=== PATIENT | male | born 1995 | race Caucasian/White ===

== ENCOUNTER 2020-04-18 13:50 | Emergency (ER) | payer OTHER, SELFPAY ==
[2020-04-18] VITALS (17 sets, daily range): BP systolic 98–125; BP diastolic 52–80; PULSE 72–97; RESP 16–24; TEMP 36.8; O2SAT 95–100; BMI 25.0
--- NOTE | 2020-04-18 13:53 | DI.US.S_ITS ---
PROCEDURE: US ABDOMEN COMPLETE INDICATIONS: UPPER ABDOMEN PAIN, NAUSEA, VOMITING, AND DIARRHEA TECHNIQUE: Real-time scanning was performed of the abdominal and retroperitoneal organs, with image documentation. COMPARISON: None. FINDINGS: Liver: Liver is normal in size and homogeneous in echotexture. Gallbladder: The gallbladder appears normal without gallstones or gallbladder wall thickening. There is no pericholecystic fluid. Sonographic Rodarte sign is negative. Biliary ducts: Intrahepatic bile ducts are non-dilated. Extrahepatic bile duct caliber measures 4 mm. Normal is 6-7 mm or less in diameter, or 10 mm or less post-cholecystectomy. Pancreas: Visualized portions of the pancreas are sonographically normal. Spleen: Spleen is normal in size and homogeneous in echotexture. Kidneys: Kidneys are normal in size and echotexture. Right kidney measures 10.5 cm long; left kidney measures 9.6 cm long. No hydronephrosis or nephrolithiasis. No solid masses. Aorta: Visualized aorta is normal in caliber at less than 3 cm. Iliacs: Proximal common iliac arteries are normal in caliber at less than 2.5 cm. IVC: Intrahepatic inferior vena cava is patent. Miscellaneous: No free abdominal fluid. IMPRESSION: No acute abnormality is identified sonographically in the abdomen. Dictated by: John Metzger M.D. on 04/18/2020 at 15:05 Approved by: John Metzger M.D. on 04/18/2020 at 15:08
[2020-04-18] MEDS: HALOPERIDOL 5 MG/ML VIAL 2 MG IV (14:02)
[2020-04-18] MEDS: PANTOPRAZOLE 40 MG VIAL IV (14:02)
[2020-04-18] MEDS: SODIUM CHLORIDE 0.9% 1,000 ML 999 ML IV (14:03)
[2020-04-18 14:24] LABS: Add Manual Diff / Slide Review NO; Basophils Absolute Auto 0 /uL (0-100); Basophils Percent Auto 0.3 % (0-2); Eosinophils Absolute Auto 0 /uL (0-450); Hematocrit 42.3 % (41-53); Hemoglobin 14.5 g/dL (13.5-17.5); Lymphocytes Absolute Auto 600 /uL (1100-4500); Lymphocytes Percent Auto 3.5 % (25-40); Mean Corpuscular HGB Conc 34.4 % (30-36); Mean Corpuscular Hemoglobin 32.2 PG (26-34); Mean Corpuscular Volume 93.6 fL (80-100); Monocytes Absolute Auto 400 /uL (0-900); Monocytes Percent Auto 2.5 % (3-14); Neutrophils Absolute Auto 15600 /uL (1500-7000); Neutrophils Percent Auto 93.7 % (50-75); Platelet Count 379 X10^3/uL (150-400); Red Blood Cell Count 4.52 X10^6/uL (4.5-5.9); Red Cell Distribution Width 12.6 % (11.6-14.8); White Blood Cell Count 16.7 X10^3/uL (4.5-11.0)
[2020-04-18 14:33] LABS: Alanine Aminotransferase 16 IU/L (<50); Albumin Globulin Ratio 1.7 (1.0-2.8); Alkaline Phosphatase 65 U/L (38-126); Aspartate Aminotransferase 24 IU/L (17-59); BUN Creatinine Ratio 17.2 (6-22); Bilirubin Total 0.5 mg/dL (0.2-1.3); Blood Urea Nitrogen 16 mg/dL (9-20); Calcium 9.8 mg/dL (8.4-10.2); Carbon Dioxide 21 mmol/L (22-32); Chloride 104 mmol/L (98-107); Estimated Glomerular Filt Rate > 60.0 mL/min (>60); Glucose 134 mg/dL (70-100); HEMOLYSIS < 15 (0-50); Lipase 89 U/L (23-300); Potassium 3.8 mmol/L (3.4-5.1); Sodium 137 mmol/L (137-145)
[2020-04-18 14:34] LABS: Magnesium 1.6 mg/dL (1.6-2.3)
[2020-04-18 14:55] LABS: Lactate (Lactic Acid) 1.7 mmol/L (0.7-2.1)
[2020-04-18 14:58] LABS: COVID19 -Nasal RAPID Negative (Negative)
--- NOTE | 2020-04-18 15:41 | ED.ABDPAIN ---
HPI - Abdominal Pain <FRANKI Samaniego - Last Filed: 04/18/20 20:31> General Chief Complaint: Abdominal Pain Stated Complaint: n/v w/ blood in vomit Source: patient and EMS Mode of arrival: EMS Limitations: no limitations History of Present Illness HPI narrative: This is a 24-year-old (biologically born as male) female, former smoker, who has past medical history significant for IBS and presents to ED with local medics with chief complain of nausea, vomiting, diarrhea, epigastric pain since 5:00 a.m. this morning. She associated her symptoms possibly after eating taco previous evening at 6 pm. Patient reports had vomited 40-50 times since her symptoms started and even noticed blood-tinged emesis. Patient reports she smokes marijuana daily but had never had hyper emesis in the past. Patient reports Crohn's/IBS symptoms are different from today's upper epigastric pain and excessive nausea, vomiting, diarrhea. She denies blood in her stools or tarry stools. She is not taking blood thinners or daily NSAIDS. She does not use alcohol drinks. Reports pain 7/10 and describes as pressure-like after received 50 mcg of fentanyl and 8 mg of Zofran in route to ED. patient denies radiation of pain. Patient takes estradiol and spironolactone daily as only medications. She denies urinary symptoms. Reports last colonoscopy/endoscopy in 2019 in [place]. She moved from [place], [place] and does not currently have PCP. Related Data Previous Rx's Medication Instructions Recorded pantoprazole [Protonix] 20 mg PO DAILY #14 tab 04/18/20 prednisone 40 mg PO DAILY 5 Days #10 tab 04/18/20 Allergies Allergy/AdvReac Type Severity Reaction Status Date / Time No Known Drug Allergies Allergy Verified 04/18/20 13:51 Review of Systems <FRANKI Samaniego - Last Filed: 04/18/20 20:31> Review of Systems Narrative: General: Denies fever, chills, fatigue, malaise, sweats. HEENT: Denies sinus pain, ear pain, sore throat, difficulty swallowing, dizziness. Respiratory: Denies dyspnea, cough, wheezing, hemoptysis, sputum. Cardiovascular: Denies chest pain, palpitations, orthopnea, edema. Gastrointestinal: See HPI : Denies dysuria, frequency, incontinence, hematuria, urinary retention. Musculoskeletal: Denies weakness, joint pain or bony pain. Skin: Denies rash, skin lesions, or other. Neurologic: Denies weakness, headache, numbness, change in speech, confusion, seizures, incoordination. Psychiatric: No concerning psychosocial issues. 12-point review of systems is negative except for those stated above. Patient History <FRANKI Samaniego - Last Filed: 04/18/20 20:31> Medical History (Updated 04/18/20 @ 20:15 by FRANKI Samaniego) Crohn's disease IBS (irritable bowel syndrome) Social History Smoking Status: Former smoker Smoking Status: Former smoker alcohol intake frequency: 0-2 drinks per day Substance Use Type: marijuana Exam <FRANKI Samaniego - Last Filed: 04/18/20 20:31> Narrative Exam Narrative: GEN: Alert, oriented x 3, thin appearing and moderate distress. Head: Normal cephalic, atraumatic. No scalp or temporal tenderness, palpable mass or rash. EYES: Pupils are equal, round, and reactive to light and accommodation. Extraocular muscles are intact bilaterally. There is no subconjunctival hemorrhage, exudate and sclera non-icteric. ENT: Hearing grossly intact. Nose without bleeding, purulent discharge or deviation. Mucous membrane and lips dry, no mucosal lesion. Throat without erythema, tonsillar hypertrophy or exudate. Uvula in midline, airway patent. Neck: Trachea in midline. No JVD, non-tender without lymphadenopathy. No masses or thyroid megaly. Supple, non-tender and no meningeal signs. CARDIAC: Normal regular rate and rhythm without murmurs, gallops, or rubs. No chest wall tenderness. No peripheral edema, cyanosis or pallor. Capillary refill is less than 2 seconds. RESPIRATORY: Lungs are clear to auscultate bilaterally. No cough, wheezes, rales, or rhonchi. No stridor, respiratory distress, increase work of breathing, or accessary muscle used. ABD: Abdomen soft non-distended and tender to palpate in epigastric region. No guarding or rebound tenderness to palpate. Bowel sounds are normal in all 4 quadrants. There is no palpable masses or organomegaly. EXT: Full painless ROM of all extremities with no loss of sensation, strength, effusion or edema. SKIN: Warm, dry, normal color for patient. No erythema, lesions or rash over visible areas. BACK: Nontender without deformity or crepitance. No flank tenderness. NEUROLOGICAL: Alert and oriented to place, time and person. Sensation and motor function intact bilaterally. No facial droops, dysphasia. PSYCHIATRIC: No abnormal behaviors during the examination. Patient is not suicidal. Initial Vital Signs Initial Vital Signs: Vital Signs Temperature 98.3 F 04/18/20 13:51 Pulse Rate 85 04/18/20 13:51 Respiratory Rate 16 04/18/20 13:51 Blood Pressure 125/80 04/18/20 13:51 Pulse Oximetry 100 04/18/20 13:51 <Janina Negrete DO - Last Filed: 04/19/20 07:33> Initial Vital Signs Initial Vital Signs: Vital Signs Temperature 98.3 F 04/18/20 13:51 Pulse Rate 85 04/18/20 13:51 Respiratory Rate 16 04/18/20 13:51 Blood Pressure 125/80 04/18/20 13:51 Pulse Oximetry 100 04/18/20 13:51 Scores <FRANKI Samaniego - Last Filed: 04/18/20 20:31> [facility] [place] coma scale eye opening: Spontaneous Fredy coma scale verbal response: Orientated Fredy coma scale motor response: Obey commands Fredy coma scale total score: 15 Course <FRANKI Samaniego - Last Filed: 04/18/20 20:31> Orders Ordered: Discontinued Medications Hydrocodone Bitart/Acetaminophen (Hydrocodone/Acet 5/325 Prepack) 1 bottle MISC SEEINSTR ONE Stop: 04/18/20 19:46 Last Admin: 04/18/20 20:06 Dose: 1 bottle Documented by: KAPIL Diphenhydramine HCl (Diphenhydramine 50 Mg/Ml Vial) 25 mg IV NOW ONE Stop: 04/18/20 13:53 Last Admin: 04/18/20 15:01 Dose: Not Given Documented by: ANDRE Haloperidol (Haloperidol 5 Mg/Ml Vial) 2 mg IV NOW ONE Stop: 04/18/20 13:54 Last Admin: 04/18/20 14:02 Dose: 2 mg Documented by: ANDRE Sodium Chloride (Normal Saline 0.9%) 1,000 mls @ 999 mls/hr IV CONT COOKIE Last Infusion: 04/18/20 15:09 Dose: 0 mls/hr Documented by: Admin: 04/18/20 14:03 Dose: 999 mls/hr Documented by: ANDRE Sodium Chloride (Normal Saline 0.9%) 1,000 mls @ 1,000 mls/hr IV BOLUS ONE Stop: 04/18/20 17:08 Last Infusion: 04/18/20 17:59 Dose: 0 mls/hr Documented by: Admin: 04/18/20 16:17 Dose: 1,000 mls/hr Documented by: ANDRE Ondansetron HCl (Ondansetron 4 Mg Odt Prepack) 1 bottle MISC SEEINSTR ONE Stop: 04/18/20 19:46 Last Admin: 04/18/20 20:07 Dose: 1 bottle Documented by: KAPIL Pantoprazole Sodium (Pantoprazole 40 Mg Vial) 40 mg IV NOW ONE Stop: 04/18/20 13:53 Last Admin: 04/18/20 14:02 Dose: 40 mg Documented by: ANDRE Prednisone (Prednisone 20 Mg Tablet) 40 mg PO NOW ONE Stop: 04/18/20 17:37 Last Admin: 04/18/20 17:58 Dose: 40 mg Documented by: ANDRE Sucralfate (Sucralfate 1 Gm/10 Ml Oral Susp) 1 gm PO NOW ONE Stop: 04/18/20 16:10 Last Admin: 04/18/20 16:17 Dose: 1 gm Documented by: ANDRE Reevaluation(s) Reevaluation #1: Patient reports nausea improved and has been sleeping after the Haldol administration. She was able to provide urine sample at this time. Will repeat another IV fluid normal saline hydration and try attempt p.o. liquid sucralfate. When patient reassessed for abdominal pain, patient reports today's pain is more severe than previous when she had Crohn's/IBS symptoms but states the location and character is not different. Decided to get CT test of abdomen and pelvis to rule out any colitis related etiology. Time: 16:11 Reevaluation #2: Dr. Grigsby (radiologist) called to inform there is a cystic mass in right groin region measuring 2.3 x 3.9 x 4[address] of abdomen and pelvis. Differential diagnosis including seroma, necrotic lymph node or cyst and recommended ultrasound to follow. Patient reassessed on abdomen/groin without significant swelling or mass per palpation and denies tenderness to palpate with RN Kourtney Parisi at bedside. Patient reports this finding is not related to today's visit. Patient denies history of surgeries. Patient denies fever or chills. Currently patient does not have primary care physician and states would like to get the ultrasound test done today. Informed patient about CT test results indicating dye fused colonic work thickening involving the transverse colon and splenic flexure descending and sigmoid colon consistent with colitis. Will consider treating patient with steroids in short burst. Time: 17:15 Reevaluation #3: US being delayed due to behind the appointments today. manager call center US tech contacted. Time: 18:30 Additional Reevaluation(s): 1944- Patient able to tolerate liquids without nausea and vomiting. Patient declined crackers and states is planning to eat when she gets home since mother already had prepare food. Reports nausea and pain all improved at this time. Waiting fall ultrasound test results will discharge patient with javierack [place] and [place]. Vital Signs Vital signs: Vital Signs - 8 hr 04/18/20 13:51 04/18/20 14:29 04/18/20 14:30 Temperature 98.3 F Pulse Rate 85 81 73 Respiratory Rate 16 24 24 Blood Pressure 125/80 120/56 L Pulse Oximetry 100 98 99 04/18/20 15:00 04/18/20 15:30 04/18/20 16:06 Temperature Pulse Rate 88 92 H 81 Respiratory Rate 21 17 20 Blood Pressure 112/63 116/71 Pulse Oximetry 100 99 99 04/18/20 16:07 04/18/20 16:32 04/18/20 16:44 Temperature Pulse Rate 77 94 H 74 Respiratory Rate 20 19 Blood Pressure 98/52 L 113/61 Pulse Oximetry 100 96 97 04/18/20 17:00 04/18/20 17:01 04/18/20 17:30 Temperature Pulse Rate 73 74 78 Respiratory Rate 19 21 19 Blood Pressure 119/56 L 109/58 L Pulse Oximetry 97 97 98 04/18/20 18:00 04/18/20 18:30 04/18/20 19:00 Temperature Pulse Rate 97 H 79 72 Respiratory Rate 20 17 21 Blood Pressure 116/60 122/58 L 113/62 Pulse Oximetry 97 96 96 04/18/20 19:30 Temperature Pulse Rate 76 Respiratory Rate 19 Blood Pressure 122/57 L Pulse Oximetry 95 <Janina Negrete, - Last Filed: 04/19/20 07:33> Orders Ordered: Discontinued Medications Hydrocodone Bitart/Acetaminophen (Hydrocodone/Acet 5/325 Prepack) 1 bottle MISC SEEINSTR ONE Stop: 04/18/20 19:46 Last Admin: 04/18/20 20:06 Dose: 1 bottle Documented by: KAPIL Diphenhydramine HCl (Diphenhydramine 50 Mg/Ml Vial) 25 mg IV NOW ONE Stop: 04/18/20 13:53 Last Admin: 04/18/20 15:01 Dose: Not Given Documented by: ANDRE Haloperidol (Haloperidol 5 Mg/Ml Vial) 2 mg IV NOW ONE Stop: 04/18/20 13:54 Last Admin: 04/18/20 14:02 Dose: 2 mg Documented by: ANDRE Sodium Chloride (Normal Saline 0.9%) 1,000 mls @ 999 mls/hr IV CONT COOKIE Last Infusion: 04/18/20 15:09 Dose: 0 mls/hr Documented by: Admin: 04/18/20 14:03 Dose: 999 mls/hr Documented by: ANDRE Sodium Chloride (Normal Saline 0.9%) 1,000 mls @ 1,000 mls/hr IV BOLUS ONE Stop: 04/18/20 17:08 Last Infusion: 04/18/20 17:59 Dose: 0 mls/hr Documented by: Admin: 04/18/20 16:17 Dose: 1,000 mls/hr Documented by: ANDRE Ondansetron HCl (Ondansetron 4 Mg Odt Prepack) 1 bottle MISC SEEINSTR ONE Stop: 04/18/20 19:46 Last Admin: 04/18/20 20:07 Dose: 1 bottle Documented by: KAPIL Pantoprazole Sodium (Pantoprazole 40 Mg Vial) 40 mg IV NOW ONE Stop: 04/18/20 13:53 Last Admin: 04/18/20 14:02 Dose: 40 mg Documented by: ANDRE Prednisone (Prednisone 20 Mg Tablet) 40 mg PO NOW ONE Stop: 04/18/20 17:37 Last Admin: 04/18/20 17:58 Dose: 40 mg Documented by: ANDRE Sucralfate (Sucralfate 1 Gm/10 Ml Oral Susp) 1 gm PO NOW ONE Stop: 04/18/20 16:10 Last Admin: 04/18/20 16:17 Dose: 1 gm Documented by: ANDRE Vital Signs Vital signs: Vital Signs - 8 hr 04/18/20 13:51 04/18/20 14:29 04/18/20 14:30 Temperature 98.3 F Pulse Rate 85 81 73 Respiratory Rate 16 24 24 Blood Pressure 125/80 120/56 L Pulse Oximetry 100 98 99 04/18/20 15:00 04/18/20 15:30 04/18/20 16:06 Temperature Pulse Rate 88 92 H 81 Respiratory Rate 21 17 20 Blood Pressure 112/63 116/71 Pulse Oximetry 100 99 99 04/18/20 16:07 04/18/20 16:32 04/18/20 16:44 Temperature Pulse Rate 77 94 H 74 Respiratory Rate 20 19 Blood Pressure 98/52 L 113/61 Pulse Oximetry 100 96 97 04/18/20 17:00 04/18/20 17:01 04/18/20 17:30 Temperature Pulse Rate 73 74 78 Respiratory Rate 19 21 19 Blood Pressure 119/56 L 109/58 L Pulse Oximetry 97 97 98 04/18/20 18:00 04/18/20 18:30 04/18/20 19:00 Temperature Pulse Rate 97 H 79 72 Respiratory Rate 20 17 21 Blood Pressure 116/60 122/58 L 113/62 Pulse Oximetry 97 96 96 04/18/20 19:30 Temperature Pulse Rate 76 Respiratory Rate 19 Blood Pressure 122/57 L Pulse Oximetry 95 MDM - Abdominal Pain <FRANKI Samaniego - Last Filed: 04/18/20 20:31> Differential Diagnosis Differential diagnosis: Likely abdominal pain, gastroenteritis, pancreatitis and other (Cholecystitis, IBS, marijuana induced hyperemesis, Crohn's exacerbation, colitis) Medical Records Attestation: I reviewed the patient's medical records. Lab Data Attestation: I reviewed the patient's lab results. Result diagrams: 04/18/20 14:00 04/18/20 14:00 Labs: Lab Results 04/18/20 04/18/20 04/18/20 Range/Units 14:00 14:00 14:00 WBC 16.7 H (4.5-11.0) X10^3/uL RBC 4.52 (4.5-5.9) X10^6/uL Hgb 14.5 (13.5-17.5) g/dL Hct 42.3 (41-53) % MCV 93.6 (80-100) fL MCH 32.2 (26-34) PG MCHC 34.4 (30-36) % RDW 12.6 (11.6-14.8) % Plt Count 379 (150-400) X10^3/uL Neut % (Auto) 93.7 H (50-75) % Lymph % (Auto) 3.5 L (25-40) % [place] % (Auto) 2.5 L (3-14) % Eos % (Auto) 0.0 L (2-4) % Baso % (Auto) 0.3 (0-2) % Neut # (Auto) 48989 H (2229-1319) /uL Lymph # (Auto) 600 L (2029-2842) /uL [place] # (Auto) 400 (0-900) /uL Eos # (Auto) 0 (0-450) /uL Baso # (Auto) 0 (0-100) /uL Sodium 137 (137-145) mmol/L Potassium 3.8 (3.4-5.1) mmol/L Chloride 104 (98-107) mmol/L Carbon Dioxide 21 L (22-32) mmol/L BUN 16 (9-20) mg/dL Creatinine 0.93 (0.66-1.25) mg/dL Estimated GFR > 60.0 (>60) mL/min BUN/Creatinine Ratio 17.2 (6-22) Glucose 134 H (70-100) mg/dL Lactate (0.7-2.1) mmol/L Calcium 9.8 (8.4-10.2) mg/dL Magnesium 1.6 (1.6-2.3) mg/dL Total Bilirubin 0.5 (0.2-1.3) mg/dL AST 24 (17-59) IU/L ALT 16 (<50) IU/L Alkaline Phosphatase 65 (38-126) U/L Total Protein 8.0 (6.3-8.2) g/dL Albumin 5.0 (3.5-5.0) g/dL Globulin 3.0 (1.7-4.1) g/dL Albumin/Globulin Ratio 1.7 (1.0-2.8) Lipase 89 (23-300) U/L Urine RBC (0-5/HPF) Urine WBC (0-5/HPF) Ur Squamous Epith Cells (0-5/HPF) Amorphous Sediment Urine Bacteria (None) Urine Mucus (Negative) Ur Culture Indicated? SARS-CoV-2 (PCR) (Negative) 04/18/20 04/18/20 04/18/20 Range/Units 14:20 14:28 15:55 WBC (4.5-11.0) X10^3/uL RBC (4.5-5.9) X10^6/uL Hgb (13.5-17.5) g/dL Hct (41-53) % MCV (80-100) fL MCH (26-34) PG MCHC (30-36) % RDW (11.6-14.8) % Plt Count (150-400) X10^3/uL Neut % (Auto) (50-75) % Lymph % (Auto) (25-40) % [place] % (Auto) (3-14) % Eos % (Auto) (2-4) % Baso % (Auto) (0-2) % Neut # (Auto) (9032-5579) /uL Lymph # (Auto) (7542-5550) /uL [place] # (Auto) (0-900) /uL Eos # (Auto) (0-450) /uL Baso # (Auto) (0-100) /uL Sodium (137-145) mmol/L Potassium (3.4-5.1) mmol/L Chloride (98-107) mmol/L Carbon Dioxide (22-32) mmol/L BUN (9-20) mg/dL Creatinine (0.66-1.25) mg/dL Estimated GFR (>60) mL/min BUN/Creatinine Ratio (6-22) Glucose (70-100) mg/dL Lactate 1.7 (0.7-2.1) mmol/L Calcium (8.4-10.2) mg/dL Magnesium (1.6-2.3) mg/dL Total Bilirubin (0.2-1.3) mg/dL AST (17-59) IU/L ALT (<50) IU/L Alkaline Phosphatase (38-126) U/L Total Protein (6.3-8.2) g/dL Albumin (3.5-5.0) g/dL Globulin (1.7-4.1) g/dL Albumin/Globulin Ratio (1.0-2.8) Lipase (23-300) U/L Urine RBC None seen (0-5/HPF) Urine WBC 1-5/hpf (0-5/HPF) Ur Squamous Epith Cells 1-5 /hpf (0-5/HPF) Amorphous Sediment 1+ Urine Bacteria Occasional (0-1) (None) Urine Mucus 2+ H (Negative) Ur Culture Indicated? Cult not indicated SARS-CoV-2 (PCR) Negative (Negative) Point of care testing: Urine Dip Bedside Urine Glucose Negative Bedside Urine Bilirubin - Negative Bedside Urine Ketone +++ 80 Urine Specific [place] 1.020 Bedside Urine Occult Blood - Negative Bedside Urine pH 7 Bedside Urine Protein +/- 15 Bedside Urine Urobilinogen - Negative Bedside Urine Nitrite - Negative Bedside Urine Leukocytes - Negative Esterase Imaging Data US - abdomen: Radiologist's Impression: [address] [id number] ReportSigned Patient: Marielos Rangel [facility]#: [id number]: 1995Acct:[id number]/Sex: 24 / MDate of Service: 04/18/20Loc: EDAccession Number: [id number] Procedure: US abdomen complete Ordering Provider: Aniceto Beckwith PROCEDURE: US ABDOMEN COMPLETE INDICATIONS: UPPER ABDOMEN PAIN, NAUSEA, VOMITING, AND DIARRHEA TECHNIQUE: Real-time scanning was performed of the abdominal and retroperitoneal organs, with image documentation. COMPARISON: None. FINDINGS: Liver: Liver is normal in size and homogeneous in echotexture. Gallbladder: The gallbladder appears normal without gallstones or gallbladder wall thickening. There is no pericholecystic fluid. Sonographic Rodarte sign is negative. Biliary ducts: Intrahepatic bile ducts are non-dilated. Extrahepatic bile duct caliber measures 4 mm. Normal is 6-7 mm or less in diameter, or 10 mm or less post-cholecystectomy. Pancreas: Visualized portions of the pancreas are sonographically normal. Spleen: Spleen is normal in size and homogeneous in echotexture. Kidneys: Kidneys are normal in size and echotexture. Right kidney measures 10.5 cm long; left kidney measures 9.6 cm long. No hydronephrosis or nephrolithiasis. No solid masses. Aorta: Visualized aorta is normal in caliber at less than 3 cm. Iliacs: Proximal common iliac arteries are normal in caliber at less than 2.5 cm. IVC: Intrahepatic inferior vena cava is patent. Miscellaneous: No free abdominal fluid. IMPRESSION: No acute abnormality is identified sonographically in the abdomen. Dictated by: John Metzger M.D. on 04/18/2020 at 15:05 Approved by: John Metzger M.D. on 04/18/2020 at 15:08 CT-Abd/pelvis: Radiologist's Impression: [address] [id number] Scan ReportSigned Patient: Marielos Rangel [facility]#: [id number]: 1995Acct:[id number]/Sex: 24 / MDate of Service: 04/18/20Loc: EDAccession Number: [id number] Procedure: CT abdomen pelvis w con Ordering Provider: Aniceto Beckwith PROCEDURE: CT ABDOMEN PELVIS W CON INDICATIONS: severe mid abd pain and numerous n/v/d, hx of IBS, crohns TECHNIQUE: After the administration of intravenous contrast, 5 mm thick sections acquired from the diaphragm to the symphysis. 5 mm coronal and sagittal reformats were acquired. For radiation dose reduction, the following was used: automated exposure control, adjustment of mA and/or kV according to patient size. COMPARISON: [facility], , US ABDOMEN COMPLETE, 04/18/2020, 14:31. FINDINGS: Image quality: Excellent. ABDOMEN: Lung bases: Lung bases are clear. Heart size is normal. Solid organs: Liver is normal in size and enhancement. Gallbladder is normal. Biliary system is non dilated. Pancreas enhances normally. Spleen is normal in size and enhancement. No adrenal nodules. Kidneys demonstrate normal size and enhancement, without hydronephrosis. Peritoneum and bowel: There is diffuse colonic wall thickening involving the transverse colon, splenic flexure, descending and sigmoid colon consistent with colitis. Bowel loops demonstrate normal caliber. Normal appendix. No free fluid or air. Nodes and vessels: No retroperitoneal or mesenteric adenopathy by size criteria. Aorta and inferior vena cava are normal in size. Miscellaneous: No ventral hernias. PELVIS: Genitourinary: Bladder is contracted. Miscellaneous: No inguinal hernias or adenopathy. There is a cystic mass in the right groin measuring 2.3 x 3.9 x 4.3 cm Bones: No suspicious bony lesions. No vertebral body compression fractures. IMPRESSION: 1. Diffuse colonic wall thickening involving the transverse colon, splenic flexure descending and sigmoid colon consistent with colitis. 2. A 2.3 x 3.9 x 4.3 cm cystic mass in the right groin. Differential diagnosis include a seroma, necrotic lymph node or cyst. If clinically indicated, ultrasound may be helpful for further evaluation and follow-up. Dictated by: Vini Grigsby M.D. on 04/18/2020 at 16:37 Approved by: Vini Grigsby M.D. on 04/18/2020 at 16:47 US-Lower abdomen/groin: Radiologist's Impression: [address] [id number] ReportSigned Patient: Marielos Rangel [facility]#: [id number]: 1995Acct:[id number]/Sex: 24 / MDate of Service: 04/18/20Loc: EDAccession Number: [id number] Procedure: US abdomen limited Ordering Provider: Aniceto Beckwith PROCEDURE: US ABDOMEN LIMITED INDICATIONS: RIGHT GROIN MASS ON CT TECHNIQUE: Real-time focused scanning was performed of the abdomen, with image documentation. COMPARISON: [facility], US, US ABDOMEN COMPLETE, 04/18/2020, 14:31. [facility], CT, CT ABDOMEN PELVIS W CON, 04/18/2020, 16:22. FINDINGS: Limited sonographic images of the right groin are unable to locate the lesion identified on CT. IMPRESSION: Nonvisualization of the CT mass lesion. Dictated by: Selin Abdalla M.D. on 04/18/2020 at 19:44 Approved by: Selin Abdalla M.D. on 04/18/2020 at 19:52 ECG Data Attestation: I personally reviewed and interpreted this ECG as follows: Prior ECG tracings: not available for review Interpretation: Normal sinus rhythm rate at 87. Normal [place] DC interval 160, QRS duration 88, QT/QTC 3 94/474. No acute ST changes MDM Narrative Medical decision making narrative: This is a 24-year-old born as male with gender identified female who has past medical history significant for Crohn's and IBS history per colonoscopy and endoscopy that was done in 2019 in [place] presents to ED with local EMS with severe mid abdominal discomfort with numerous episodes of nausea, vomiting with small amount of blood streaks, and diarrhea since 5:00 a.m. this morning. Physical exam appreciated exquisite tenderness in mid abdomen upon arrival. Oral mucous membrane extremely dry suggesting dehydration. Blood test shows elevated white count to 16.7 with neutrophils up to 93.7%. Chemistry test was unremarkable. Lactate was within normal as 1.7. Normal lipase. Concerned for cholecystitis/pancreatitis, ultrasound of abdomen ordered. Ultrasound on upper abdomen without Acute findings with normal appearing gallbladder without stones or gallbladder wall thickening, negative sonographic Rodarte sign, normal bile dock, normal pancreas. Both kidneys normal appearing without hydronephrosis or nephrolithiasis. When patient was reassessed after receiving IV fluid 1 L, Haldol 2mg IV, Protonix 40mg IV, patient reports pain moderately improved along the nausea. Patient reported similar pain character and location in the past when he had IBS/Crohn's disease but today's pain is more severe. Concerned for another episode of colitis, CT of abdomen/pelvis ordered. CT shows that diffuse colonic wall thickening involving transverse, splenic flexure descending and sigmoid colon consistent with colitis. Also, radiologist called to inform there is a good size of cystic mass in right groin concerned for necrotic lymph node, cyst, or seroma if patient had recent surgery and recommended ultrasound to follow-up. Patient denies recent ultrasound test, no tenderness to palpate in right groin, physical exam was unremarkable without significant lump, swelling appreciated. I discussed the findings with patient to follow-up with PCP in the future or the test can be done today and he would like to go ahead with ultrasound test to be done today. Lower abdomen ultrasound ordered but at this time right groin mass was unable to be found. It is unclear what the CT was shown but not in US. Patient reports overly much improved symptoms. She was able to tolerate fluids a declined to eat since she is planning to eat at home that her mother prepared. Patient discharged to home for 5 day course of short burst steroid treatment, Protonix daily for next 2 weeks. Patient also discharged to home with lynda Kerr for severe pain management. Advised to arrange PCP in telling him where she lives and advised to follow up with GI specialist. Return precautions discussed with patient and she verbalized understanding and agreement with the treatment plan. <Janina Negrete, - Last Filed: 04/19/20 07:33> Lab Data Labs: Lab Results 04/18/20 04/18/20 04/18/20 Range/Units 14:00 14:00 14:00 WBC 16.7 H (4.5-11.0) X10^3/uL RBC 4.52 (4.5-5.9) X10^6/uL Hgb 14.5 (13.5-17.5) g/dL Hct 42.3 (41-53) % MCV 93.6 (80-100) fL MCH 32.2 (26-34) PG MCHC 34.4 (30-36) % RDW 12.6 (11.6-14.8) % Plt Count 379 (150-400) X10^3/uL Neut % (Auto) 93.7 H (50-75) % Lymph % (Auto) 3.5 L (25-40) % [place] % (Auto) 2.5 L (3-14) % Eos % (Auto) 0.0 L (2-4) % Baso % (Auto) 0.3 (0-2) % Neut # (Auto) 77465 H (3473-5379) /uL Lymph # (Auto) 600 L (4549-3772) /uL [place] # (Auto) 400 (0-900) /uL Eos # (Auto) 0 (0-450) /uL Baso # (Auto) 0 (0-100) /uL Sodium 137 (137-145) mmol/L Potassium 3.8 (3.4-5.1) mmol/L Chloride 104 (98-107) mmol/L Carbon Dioxide 21 L (22-32) mmol/L BUN 16 (9-20) mg/dL Creatinine 0.93 (0.66-1.25) mg/dL Estimated GFR > 60.0 (>60) mL/min BUN/Creatinine Ratio 17.2 (6-22) Glucose 134 H (70-100) mg/dL Lactate (0.7-2.1) mmol/L Calcium 9.8 (8.4-10.2) mg/dL Magnesium 1.6 (1.6-2.3) mg/dL Total Bilirubin 0.5 (0.2-1.3) mg/dL AST 24 (17-59) IU/L ALT 16 (<50) IU/L Alkaline Phosphatase 65 (38-126) U/L Total Protein 8.0 (6.3-8.2) g/dL Albumin 5.0 (3.5-5.0) g/dL Globulin 3.0 (1.7-4.1) g/dL Albumin/Globulin Ratio 1.7 (1.0-2.8) Lipase 89 (23-300) U/L Urine RBC (0-5/HPF) Urine WBC (0-5/HPF) Ur Squamous Epith Cells (0-5/HPF) Amorphous Sediment Urine Bacteria (None) Urine Mucus (Negative) Ur Culture Indicated? SARS-CoV-2 (PCR) (Negative) 04/18/20 04/18/20 04/18/20 Range/Units 14:20 14:28 15:55 WBC (4.5-11.0) X10^3/uL RBC (4.5-5.9) X10^6/uL Hgb (13.5-17.5) g/dL Hct (41-53) % MCV (80-100) fL MCH (26-34) PG MCHC (30-36) % RDW (11.6-14.8) % Plt Count (150-400) X10^3/uL Neut % (Auto) (50-75) % Lymph % (Auto) (25-40) % [place] % (Auto) (3-14) % Eos % (Auto) (2-4) % Baso % (Auto) (0-2) % Neut # (Auto) (6511-6942) /uL Lymph # (Auto) (0561-0322) /uL [place] # (Auto) (0-900) /uL Eos # (Auto) (0-450) /uL Baso # (Auto) (0-100) /uL Sodium (137-145) mmol/L Potassium (3.4-5.1) mmol/L Chloride (98-107) mmol/L Carbon Dioxide (22-32) mmol/L BUN (9-20) mg/dL Creatinine (0.66-1.25) mg/dL Estimated GFR (>60) mL/min BUN/Creatinine Ratio (6-22) Glucose (70-100) mg/dL Lactate 1.7 (0.7-2.1) mmol/L Calcium (8.4-10.2) mg/dL Magnesium (1.6-2.3) mg/dL Total Bilirubin (0.2-1.3) mg/dL AST (17-59) IU/L ALT (<50) IU/L Alkaline Phosphatase (38-126) U/L Total Protein (6.3-8.2) g/dL Albumin (3.5-5.0) g/dL Globulin (1.7-4.1) g/dL Albumin/Globulin Ratio (1.0-2.8) Lipase (23-300) U/L Urine RBC None seen (0-5/HPF) Urine WBC 1-5/hpf (0-5/HPF) Ur Squamous Epith Cells 1-5 /hpf (0-5/HPF) Amorphous Sediment 1+ Urine Bacteria Occasional (0-1) (None) Urine Mucus 2+ H (Negative) Ur Culture Indicated? Cult not indicated SARS-CoV-2 (PCR) Negative (Negative) Point of care testing: Urine Dip Bedside Urine Glucose Negative Bedside Urine Bilirubin - Negative Bedside Urine Ketone +++ 80 Urine Specific [place] 1.020 Bedside Urine Occult Blood - Negative Bedside Urine pH 7 Bedside Urine Protein +/- 15 Bedside Urine Urobilinogen - Negative Bedside Urine Nitrite - Negative Bedside Urine Leukocytes - Negative Esterase Discharge Plan Departure Patient Disposition: Home Clinical Impression: Colitis Instructions: DI for Abdominal Pain-Adult, DI for Colitis Activity Restrictions/Additional Instructions: You have been diagnosed with [abdominal pain and colitis in transverse, splenic flexure, descending and sigmoid colon according to CT results. Blood test shows slightly increased in white count up to 16.7 but otherwise assuring. No indications for urinary tract infection. CT test also showed a cystic mass in right groin region which was followed with ultrasound for further study but this was not present according to ultrasound test.]. What to do: *Take your medications as directed. Please continue with prednisone 40 mg a day for next 5 days. You can take Zofran as needed for nausea or vomiting. Please take Protonix daily for next 2 weeks. You can take Kamuela that you are going home with for severe pain otherwise you can take Tylenol which is [id number] as needed for pain. *Follow up with your primary care provider/GI specialist Dr. Kerr in 2-3 days, call for an appointment. Let them know you were seen in the ED and that we asked you to be seen in follow up. *Return to ED if you have any new, worsening, or concerning symptoms, such as [worsening pain, fever, unable to tolerate fluids, vomiting blood, blood in her stools, chest pain, breathing difficulty, or any acute concerns]. Prescriptions: New prednisone 20 mg tablet 40 mg PO DAILY 5 Days Qty: 10 RF: 0 pantoprazole [Protonix] 20 mg tablet,delayed release (DR/EC) 20 mg PO DAILY Qty: 14 RF: 0 Referrals: Kimberly Kerr MD [Physician] - <Janina Negrete DO - Last Filed: 04/19/20 07:33> Cosign ED Attending Cosjamesature Attestation: I was immediately available in the department for consultation. Documentation has been reviewed. Patient case is reviewed cystic mass lesion was noted on CT and was reviewed by myself. US imaging was unable to visualize. Patient is follow up GI for recheck.
--- NOTE | 2020-04-18 16:14 | DI.CT.S_ITS ---
PROCEDURE: CT ABDOMEN PELVIS W CON INDICATIONS: severe mid abd pain and numerous n/v/d, hx of IBS, crohns TECHNIQUE: After the administration of intravenous contrast, 5 mm thick sections acquired from the diaphragm to the symphysis. 5 mm coronal and sagittal reformats were acquired. For radiation dose reduction, the following was used: automated exposure control, adjustment of mA and/or kV according to patient size. COMPARISON: [facility], , US ABDOMEN COMPLETE, 04/18/2020, 14:31. FINDINGS: Image quality: Excellent. ABDOMEN: Lung bases: Lung bases are clear. Heart size is normal. Solid organs: Liver is normal in size and enhancement. Gallbladder is normal. Biliary system is non dilated. Pancreas enhances normally. Spleen is normal in size and enhancement. No adrenal nodules. Kidneys demonstrate normal size and enhancement, without hydronephrosis. Peritoneum and bowel: There is diffuse colonic wall thickening involving the transverse colon, splenic flexure, descending and sigmoid colon consistent with colitis. Bowel loops demonstrate normal caliber. Normal appendix. No free fluid or air. Nodes and vessels: No retroperitoneal or mesenteric adenopathy by size criteria. Aorta and inferior vena cava are normal in size. Miscellaneous: No ventral hernias. PELVIS: Genitourinary: Bladder is contracted. Miscellaneous: No inguinal hernias or adenopathy. There is a cystic mass in the right groin measuring 2.3 x 3.9 x 4.3 cm Bones: No suspicious bony lesions. No vertebral body compression fractures. IMPRESSION: 1. Diffuse colonic wall thickening involving the transverse colon, splenic flexure descending and sigmoid colon consistent with colitis. 2. A 2.3 x 3.9 x 4.3 cm cystic mass in the right groin. Differential diagnosis include a seroma, necrotic lymph node or cyst. If clinically indicated, ultrasound may be helpful for further evaluation and follow-up. Dictated by: Vini Grigsby M.D. on 04/18/2020 at 16:37 Approved by: Vini Grigsby M.D. on 04/18/2020 at 16:47
[2020-04-18 16:16] LABS: RBC Urine None Seen (0-5/HPF)
[2020-04-18] MEDS: SUCRALFATE 1 GM/10 ML ORAL SUSP PO (16:17)
[2020-04-18] MEDS: SODIUM CHLORIDE 0.9% 1,000 ML 1000 ML IV (16:17)
[2020-04-18 16:25] LABS: Amorphous Sediment Urine 1+; Bacteria Urine Occasional (0-1); Culture Indicated Urine Cult Not Indicated; Mucus Urine 2+ (Negative); Squamous Epithelial Cell Urine 1-5 /HPF (0-5/HPF); WBC Urine 1-5/HPF (0-5/HPF)
--- NOTE | 2020-04-18 17:34 | DI.US.S_ITS ---
PROCEDURE: US ABDOMEN LIMITED INDICATIONS: RIGHT GROIN MASS ON CT TECHNIQUE: Real-time focused scanning was performed of the abdomen, with image documentation. COMPARISON: [facility], US, US ABDOMEN COMPLETE, 04/18/2020, 14:31. [facility], CT, CT ABDOMEN PELVIS W CON, 04/18/2020, 16:22. FINDINGS: Limited sonographic images of the right groin are unable to locate the lesion identified on CT. IMPRESSION: Nonvisualization of the CT mass lesion. Dictated by: Selin Abdalla M.D. on 04/18/2020 at 19:44 Approved by: Selin Abdalla M.D. on 04/18/2020 at 19:52
[2020-04-18] MEDS: predniSONE 20 MG TABLET 40 MG PO (17:58)
[2020-04-18] MEDS: HYDROCODONE/ACET 5/325 PREPACK 1 BOTTLE MISC (20:06)
[2020-04-18] MEDS: ONDANSETRON 4 MG ODT PREPACK 1 BOTTLE MISC (20:07)
== END 2020-04-18 20:22 | disposition home or self-care (01) ==
PROVIDERS: Emergency Provider Nurse Practitioner Family
DX: K52.9 Noninfective gastroenteritis and colitis, unspecified (principal); R11.2 Nausea with vomiting, unspecified; Z20.822 Contact with and (suspected) exposure to COVID-19
CPT/HCPCS: 36415; 74177; 76700; 76705; 80053; 81003; 81015; 83605; 83690; 83735; 85025; 87635; 93005; 96361; 96374; 96375; 99284; C9803; C9113; J1200; J1630; Q9967

== ENCOUNTER 2020-08-08 18:41 | Emergency (ER) | payer OTHER, MEDICAID, SELFPAY ==
[2020-08-08 19:00] VITALS: BP 106/70; PULSE 94; RESP 19; TEMP 36.2; O2SAT 96; BMI 24.4
[2020-08-08 19:22] LABS: Bacteria Urine None Seen; RBC Urine None Seen (0-5/HPF)
[2020-08-08 19:37] LABS: Appearance Urine UA CLEAR; Bilirubin Urine UA NEGATIVE (NEGATIVE); Color Urine UA YELLOW; Glucose Urine UA NEGATIVE (Negative); Ketones Urine UA NEGATIVE (NEGATIVE); Leukocyte Esterase Urine UA NEGATIVE (NEGATIVE); Nitrite Urine UA NEGATIVE (Negative); Occult Blood Urine UA NEGATIVE (Negative); Protein Urine UA NEGATIVE (Negative); Specific Gravity Urine UA 1.015 (1.000-1.035); Urobilinogen Urine UA 0.2 E.U./dL (0.2)
[2020-08-08 19:45] LABS: Add Manual Diff / Slide Review NO; Basophils Absolute Auto 100 /uL (0-100); Eosinophils Absolute Auto 400 /uL (0-450); Eosinophils Percent Auto 6.1 % (2-4); Hematocrit 37.2 % (41-53); Hemoglobin 12.6 g/dL (13.5-17.5); Lymphocytes Absolute Auto 2100 /uL (1100-4500); Lymphocytes Percent Auto 31.7 % (25-40); Mean Corpuscular HGB Conc 33.9 % (30-36); Mean Corpuscular Hemoglobin 32.6 PG (26-34); Mean Corpuscular Volume 96.3 fL (80-100); Monocytes Absolute Auto 600 /uL (0-900); Monocytes Percent Auto 9.1 % (3-14); Neutrophils Absolute Auto 3400 /uL (1500-7000); Neutrophils Percent Auto 52.1 % (50-75); Platelet Count 279 X10^3/uL (150-400); Red Blood Cell Count 3.86 X10^6/uL (4.5-5.9); Red Cell Distribution Width 11.9 % (11.6-14.8); White Blood Cell Count 6.5 X10^3/uL (4.5-11.0)
--- NOTE | 2020-08-08 19:48 | ED_ITS ---
HPI - Psych <Sea Lance DO - Last Filed: 08/11/20 06:32> General Chief Complaint: Psychiatric Symptoms Stated Complaint: SI Time Seen by Provider: 08/08/20 19:33 Source: patient Mode of arrival: Family Vehicle History of Present Illness HPI Narrative: 25-year-old former smoker with history of multiple mental health diagnoses presents with family in the chief complaint of self-harm and multiple superficial lacerations on left forearm. Was just discharged after a week at [facility]. Does not feel safe at home and is afraid of what could happen if not readmitted. No dizziness, weakness or lightheadedness. No chest pain or shortness of breath. No street drugs or alcohol. Related Data Home Medications Medication Instructions Recorded Confirmed citalopram 10 mg tablet 10 mg PO DAILY 08/09/20 08/09/20 clonazepam 0.5 mg tablet 0.5 mg PO DAILY 08/09/20 08/09/20 estradiol 2 mg tablet 3 mg PO DAILY 08/09/20 08/09/20 Previous Rx's Medication Instructions Recorded pantoprazole 20 mg tablet,delayed 20 mg PO DAILY #14 tab 04/18/20 release (Protonix) Allergies Allergy/AdvReac Type Severity Reaction Status Date / Time No Known Drug Allergies Allergy Verified 08/08/20 19:08 Review of Systems <DO Yamile Doshi Last Filed: 08/11/20 06:32> Constitutional Constitutional: Denies chills, Denies fatigue, Denies fever(s), Denies frequent falls, Denies lethargy and Denies weakness Eyes Eyes: Denies change in vision, Denies eye discharge, Denies irritation and Denies loss of vision ENT Ears, Nose, Mouth, and Throat: Denies change in voice, Denies dizziness, Denies neck pain and Denies sore throat Cardiovascular Cardiovascular: Denies chest pain, Denies irregular heart rhythm, Denies lightheadedness, Denies palpitations, Denies dyspnea, Denies dyspnea on exertion and Denies orthopnea Respiratory Respiratory: Denies cough, Denies dyspnea, Denies dyspnea on exertion and Denies wheezing Gastrointestinal Gastrointestinal: Denies abdominal pain, Denies change in bowel habits, Denies diarrhea, Denies nausea and Denies vomiting Musculoskeletal Musculoskeletal: Denies neck pain and Denies numbness Integumentary/Breasts Skin/Breast: Denies wounds Neurologic Neurologic: Denies behavioral changes, Denies confusion, Denies dizziness, Denies frequent falls, Denies loss of vision, Denies numbness and Denies weakness Psychiatric Psychiatric: Denies behavioral changes, Denies confusion, Denies depression and Denies suicidal ideation Endocrine Endocrine: Denies fatigue and Denies palpitations Hematologic/Lymphatic Hematologic/Lymphatic: Denies easy bruising Allergic/Immunologic Allergic/Immunologic: Denies urticaria and Denies wheezing Patient History <Sea Lance DO - Last Filed: 08/11/20 06:32> Medical History (Updated 08/10/20 @ 05:43 by Sea Lance DO) Crohn's disease Depression IBS (irritable bowel syndrome) PTSD (post-traumatic stress disorder) Suicidal behavior Suicidal behavior with attempted self-injury Social History Smoking Status: Former smoker Smoking Status: Former smoker tobacco type: cigarettes alcohol intake frequency: 0-2 drinks per day Substance Use Type: marijuana Exam <Sea Lance DO - Last Filed: 08/11/20 06:32> Narrative Exam Narrative: GENERAL: [25] year old patient appears stated age. Well- developed patient, in mild distress. HEAD: Atraumatic. Normocephalic. EYES: Pupils equal round and reactive. Extraocular motions intact. No scleral icterus. No injection or drainage. ENT: Nose without bleeding, purulent drainage. Throat without erythema, tonsillar hypertrophy or exudate. Airway patent. NECK: Trachea midline. Non tender CARDIOVASCULAR: Regular rate and rhythm without murmurs, gallops, or rubs. RESPIRATORY: Clear to auscultation. Breath sounds equal bilaterally. No wheezes, rales, or rhonchi. GASTROINTESTINAL: Abdomen soft, non-tender, nondistended. EXTREMITIES: No edema or joint tenderness. Multiple superficial abrasions on v olar surface of left forearm, non will require repair BACK: Nontender without deformity or crepitance. No flank tenderness. NEURO: AOx3. SKIN: No rash or erythema of visible areas Initial Vital Signs Initial Vital Signs: Vital Signs Temperature 97.2 F L 08/08/20 19:00 Pulse Rate 94 H 08/08/20 19:00 Respiratory Rate 19 08/08/20 19:00 Blood Pressure 106/70 08/08/20 19:00 Pulse Oximetry 96 08/08/20 19:00 <Ronda Costello MD - Last Filed: 08/12/20 17:21> Initial Vital Signs Initial Vital Signs: Vital Signs Temperature 97.2 F L 08/08/20 19:00 Pulse Rate 94 H 08/08/20 19:00 Respiratory Rate 19 08/08/20 19:00 Blood Pressure 106/70 08/08/20 19:00 Pulse Oximetry 96 08/08/20 19:00 Course <Sea Lance DO - Last Filed: 08/11/20 06:32> Course Course Narrative: patient has been accepted at [facility] for transport later this morning Orders Ordered: Discontinued Medications Clonazepam (Clonazepam 0.5 Mg Tablet) 1 mg PO NOW ONE Stop: 08/09/20 09:06 Last Admin: 08/09/20 09:27 Dose: 1 mg Documented by: RAYMOND Haloperidol (Haloperidol 5 Mg/Ml Vial) 5 mg IM NOW ONE Stop: 08/09/20 10:28 Last Admin: 08/09/20 10:35 Dose: 5 mg Documented by: RAYMOND Lorazepam (Lorazepam 0.5 Mg Tablet) 2 mg PO NOW ONE Stop: 08/09/20 09:54 Last Admin: 08/09/20 09:58 Dose: 2 mg Documented by: RAYMOND Lorazepam (Lorazepam 0.5 Mg Tablet) 1 mg PO NOW ONE Stop: 08/09/20 19:43 Last Admin: 08/09/20 19:53 Dose: 1 mg Documented by: DONA Lorazepam (Lorazepam 0.5 Mg Tablet) 1 mg PO NOW ONE Stop: 08/10/20 03:28 Last Admin: 08/10/20 03:35 Dose: 1 mg Documented by: DONA Olanzapine (Olanzapine 2.5 Mg Tablet) 10 mg PO BID ONE Stop: 08/09/20 09:09 Last Admin: 08/09/20 09:35 Dose: 10 mg Documented by: DANIEL Olanzapine (Olanzapine Odt 10 Mg Tab) 10 mg PO NOW ONE Stop: 08/09/20 17:11 Last Admin: 08/09/20 17:16 Dose: 10 mg Documented by: SUNIL Vital Signs Vital signs: Vital Signs - 8 hr 08/09/20 15:45 Temperature 99.5 F Pulse Rate 82 Respiratory Rate 18 Blood Pressure [Right Arm] 113/68 Pulse Oximetry 99 <Ronda Costello MD - Last Filed: 08/12/20 17:21> Orders Ordered: Discontinued Medications Clonazepam (Clonazepam 0.5 Mg Tablet) 1 mg PO NOW ONE Stop: 08/09/20 09:06 Last Admin: 08/09/20 09:27 Dose: 1 mg Documented by: RAYMOND Haloperidol (Haloperidol 5 Mg/Ml Vial) 5 mg IM NOW ONE Stop: 08/09/20 10:28 Last Admin: 08/09/20 10:35 Dose: 5 mg Documented by: RAYMOND Lorazepam (Lorazepam 0.5 Mg Tablet) 2 mg PO NOW ONE Stop: 08/09/20 09:54 Last Admin: 08/09/20 09:58 Dose: 2 mg Documented by: RAYMOND Lorazepam (Lorazepam 0.5 Mg Tablet) 1 mg PO NOW ONE Stop: 08/09/20 19:43 Last Admin: 08/09/20 19:53 Dose: 1 mg Documented by: EAMA Lorazepam (Lorazepam 0.5 Mg Tablet) 1 mg PO NOW ONE Stop: 08/10/20 03:28 Last Admin: 08/10/20 03:35 Dose: 1 mg Documented by: DONA Olanzapine (Olanzapine 2.5 Mg Tablet) 10 mg PO BID ONE Stop: 08/09/20 09:09 Last Admin: 08/09/20 09:35 Dose: 10 mg Documented by: DANIEL Olanzapine (Olanzapine Odt 10 Mg Tab) 10 mg PO NOW ONE Stop: 08/09/20 17:11 Last Admin: 08/09/20 17:16 Dose: 10 mg Documented by: SUNIL Reevaluation(s) Reevaluation #1: Increasing anxiety this morning. Requests her usual dose of 1 mg of clonazepam and 10 mg of Zyprexa. This is ordered. Still waiting for social work consult. Reevaluation #2: Increasing anxiety and anxious behavioral patterns despite the oral Zyprexa and clonazepam. Additional Ativan is added. Reevaluation #3: Continued escalation of anxiety with increasing self-harm. She is given 5 mg of IM Haldol and reassurance that we are trying to help in controlling her anxiety. 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 Phone call to the facility where she was recently admitted for suicidal ideation was made. They do have a bed available at another facility however given the fact that she has return to the emergency room after a recent voluntary inpatient hospital stay, has required escalating doses of sedation including IM Haldol and her stuffed animal is telling her to kill herself they feel that she is psychotic and needs to be detained prior to acceptance for continued psychiatric care. Given these progression of findings will ask the licensed social worker to contact [facility] for further evaluation. After the IM Haldol she has remained sleeping much of the afternoon. 5:13pm patient is awake and increasingly agitated. She is rocking back and forth on her mattress and becoming more agitated over the extended weights for a plan to be developed. A call has gone out to the [facility] but we have not yet spoken to them. An additional 10 mg of oral Zyprexa is administered. Vital Signs Vital signs: Vital Signs - 8 hr 08/09/20 15:45 Temperature 99.5 F Pulse Rate 82 Respiratory Rate 18 Blood Pressure [Right Arm] 113/68 Pulse Oximetry 99 MDM - Psych <Sea Lance DO - Last Filed: 08/11/20 06:32> Lab Data Result diagrams: 08/08/20 19:35 08/08/20 19:35 Labs: Lab Results 08/08/20 08/08/20 08/08/20 Range/Units 19:19 19:19 19:35 WBC 6.5 (4.5-11.0) X10^3/uL RBC 3.86 L (4.5-5.9) X10^6/uL Hgb 12.6 L (13.5-17.5) g/dL Hct 37.2 L (41-53) % MCV 96.3 (80-100) fL MCH 32.6 (26-34) PG MCHC 33.9 (30-36) % RDW 11.9 (11.6-14.8) % Plt Count 279 (150-400) X10^3/uL Neut % (Auto) 52.1 (50-75) % Lymph % (Auto) 31.7 (25-40) % [place] % (Auto) 9.1 (3-14) % Eos % (Auto) 6.1 H (2-4) % Baso % (Auto) 1.0 (0-2) % Neut # (Auto) 3400 (9079-9133) /uL Lymph # (Auto) 2100 (1491-0788) /uL [place] # (Auto) 600 (0-900) /uL Eos # (Auto) 400 (0-450) /uL Baso # (Auto) 100 (0-100) /uL Sodium (137-145) mmol/L Potassium (3.4-5.1) mmol/L Chloride (98-107) mmol/L Carbon Dioxide (22-32) mmol/L BUN (9-20) mg/dL Creatinine (0.66-1.25) mg/dL Estimated GFR (>60) mL/min BUN/Creatinine Ratio (6-22) Glucose (70-100) mg/dL Calcium (8.4-10.2) mg/dL Total Bilirubin (0.2-1.3) mg/dL AST (17-59) IU/L ALT (<50) IU/L Alkaline Phosphatase (38-126) U/L Total Protein (6.3-8.2) g/dL Albumin (3.5-5.0) g/dL Globulin (1.7-4.1) g/dL Albumin/Globulin Ratio (1.0-2.8) Urine Color Yellow Urine Appearance Clear Urine pH 7.0 (4.5-8.0) Ur Specific [employer] 1.015 (1.000-1.035) Urine Protein Negative (Negative) Urine Glucose (UA) Negative (Negative) g/dL Urine Ketones Negative (NEGATIVE) Urine Occult Blood Negative (Negative) Urine Nitrate Negative (Negative) Urine Bilirubin Negative (NEGATIVE) Urine Urobilinogen 0.2 (0.2) E.U./dL Ur Leukocyte Esterase Negative (NEGATIVE) Urine RBC None seen (0-5/HPF) Urine WBC 0-1/hpf (0-5/HPF) Ur Squamous Epith Cells 0-1 /hpf (0-5/HPF) Urine Bacteria None seen (None) Ur Culture Indicated? Cult not indicated U Opiates 300ng/mL cut Negative (Negative) Ur Oxycodone Screen Negative (Negative) Urine Methadone Screen Negative (Negative) Ur Barbiturates Screen Negative (Negative) U Tricyclic Antidepress Negative (Negative) Ur Phencyclidine Scrn Negative (Negative) Ur Amphetamines Screen Negative (Negative) U Methamphetamines Scrn Negative (Negative) Ur MDMA Scrn (Ecstasy) Negative (Negative) U Benzodiazepines Scrn Negative (Negative) Urine Cocaine Screen Negative (Negative) U Marijuana (THC) Screen Positive H (Negative) Ethyl Alcohol ( - 10) mg/dL SARS-CoV-2 (PCR) (Negative) 08/08/20 08/08/20 Range/Units 19:35 19:35 WBC (4.5-11.0) X10^3/uL RBC (4.5-5.9) X10^6/uL Hgb (13.5-17.5) g/dL Hct (41-53) % MCV (80-100) fL MCH (26-34) PG MCHC (30-36) % RDW (11.6-14.8) % Plt Count (150-400) X10^3/uL Neut % (Auto) (50-75) % Lymph % (Auto) (25-40) % [place] % (Auto) (3-14) % Eos % (Auto) (2-4) % Baso % (Auto) (0-2) % Neut # (Auto) (3390-0066) /uL Lymph # (Auto) (7366-0300) /uL [place] # (Auto) (0-900) /uL Eos # (Auto) (0-450) /uL Baso # (Auto) (0-100) /uL Sodium 140 (137-145) mmol/L Potassium 3.9 (3.4-5.1) mmol/L Chloride 105 (98-107) mmol/L Carbon Dioxide 29 (22-32) mmol/L BUN 14 (9-20) mg/dL Creatinine 0.71 (0.66-1.25) mg/dL Estimated GFR > 60.0 (>60) mL/min BUN/Creatinine Ratio 19.7 (6-22) Glucose 84 (70-100) mg/dL Calcium 8.8 (8.4-10.2) mg/dL Total Bilirubin < 0.1 L (0.2-1.3) mg/dL AST 16 L (17-59) IU/L ALT 10 (<50) IU/L Alkaline Phosphatase 42 (38-126) U/L Total Protein 6.6 (6.3-8.2) g/dL Albumin 3.7 (3.5-5.0) g/dL Globulin 2.9 (1.7-4.1) g/dL Albumin/Globulin Ratio 1.3 (1.0-2.8) Urine Color Urine Appearance Urine pH (4.5-8.0) Ur Specific [employer] (1.000-1.035) Urine Protein (Negative) Urine Glucose (UA) (Negative) g/dL Urine Ketones (NEGATIVE) Urine Occult Blood (Negative) Urine Nitrate (Negative) Urine Bilirubin (NEGATIVE) Urine Urobilinogen (0.2) E.U./dL Ur Leukocyte Esterase (NEGATIVE) Urine RBC (0-5/HPF) Urine WBC (0-5/HPF) Ur Squamous Epith Cells (0-5/HPF) Urine Bacteria (None) Ur Culture Indicated? U Opiates 300ng/mL cut (Negative) Ur Oxycodone Screen (Negative) Urine Methadone Screen (Negative) Ur Barbiturates Screen (Negative) U Tricyclic Antidepress (Negative) Ur Phencyclidine Scrn (Negative) Ur Amphetamines Screen (Negative) U Methamphetamines Scrn (Negative) Ur MDMA Scrn (Ecstasy) (Negative) U Benzodiazepines Scrn (Negative) Urine Cocaine Screen (Negative) U Marijuana (THC) Screen (Negative) Ethyl Alcohol < 10 ( - 10) mg/dL SARS-CoV-2 (PCR) Negative (Negative) <Ronda Costello MD - Last Filed: 08/12/20 17:21> Lab Data Labs: Lab Results 08/08/20 08/08/20 08/08/20 Range/Units 19:19 19:19 19:35 WBC 6.5 (4.5-11.0) X10^3/uL RBC 3.86 L (4.5-5.9) X10^6/uL Hgb 12.6 L (13.5-17.5) g/dL Hct 37.2 L (41-53) % MCV 96.3 (80-100) fL MCH 32.6 (26-34) PG MCHC 33.9 (30-36) % RDW 11.9 (11.6-14.8) % Plt Count 279 (150-400) X10^3/uL Neut % (Auto) 52.1 (50-75) % Lymph % (Auto) 31.7 (25-40) % [place] % (Auto) 9.1 (3-14) % Eos % (Auto) 6.1 H (2-4) % Baso % (Auto) 1.0 (0-2) % Neut # (Auto) 3400 (2557-7723) /uL Lymph # (Auto) 2100 (2794-5290) /uL [place] # (Auto) 600 (0-900) /uL Eos # (Auto) 400 (0-450) /uL Baso # (Auto) 100 (0-100) /uL Sodium (137-145) mmol/L Potassium (3.4-5.1) mmol/L Chloride (98-107) mmol/L Carbon Dioxide (22-32) mmol/L BUN (9-20) mg/dL Creatinine (0.66-1.25) mg/dL Estimated GFR (>60) mL/min BUN/Creatinine Ratio (6-22) Glucose (70-100) mg/dL Calcium (8.4-10.2) mg/dL Total Bilirubin (0.2-1.3) mg/dL AST (17-59) IU/L ALT (<50) IU/L Alkaline Phosphatase (38-126) U/L Total Protein (6.3-8.2) g/dL Albumin (3.5-5.0) g/dL Globulin (1.7-4.1) g/dL Albumin/Globulin Ratio (1.0-2.8) Urine Color Yellow Urine Appearance Clear Urine pH 7.0 (4.5-8.0) Ur Specific [employer] 1.015 (1.000-1.035) Urine Protein Negative (Negative) Urine Glucose (UA) Negative (Negative) g/dL Urine Ketones Negative (NEGATIVE) Urine Occult Blood Negative (Negative) Urine Nitrate Negative (Negative) Urine Bilirubin Negative (NEGATIVE) Urine Urobilinogen 0.2 (0.2) E.U./dL Ur Leukocyte Esterase Negative (NEGATIVE) Urine RBC None seen (0-5/HPF) Urine WBC 0-1/hpf (0-5/HPF) Ur Squamous Epith Cells 0-1 /hpf (0-5/HPF) Urine Bacteria None seen (None) Ur Culture Indicated? Cult not indicated U Opiates 300ng/mL cut Negative (Negative) Ur Oxycodone Screen Negative (Negative) Urine Methadone Screen Negative (Negative) Ur Barbiturates Screen Negative (Negative) U Tricyclic Antidepress Negative (Negative) Ur Phencyclidine Scrn Negative (Negative) Ur Amphetamines Screen Negative (Negative) U Methamphetamines Scrn Negative (Negative) Ur MDMA Scrn (Ecstasy) Negative (Negative) U Benzodiazepines Scrn Negative (Negative) Urine Cocaine Screen Negative (Negative) U Marijuana (THC) Screen Positive H (Negative) Ethyl Alcohol ( - 10) mg/dL SARS-CoV-2 (PCR) (Negative) 08/08/20 08/08/20 Range/Units 19:35 19:35 WBC (4.5-11.0) X10^3/uL RBC (4.5-5.9) X10^6/uL Hgb (13.5-17.5) g/dL Hct (41-53) % MCV (80-100) fL MCH (26-34) PG MCHC (30-36) % RDW (11.6-14.8) % Plt Count (150-400) X10^3/uL Neut % (Auto) (50-75) % Lymph % (Auto) (25-40) % [place] % (Auto) (3-14) % Eos % (Auto) (2-4) % Baso % (Auto) (0-2) % Neut # (Auto) (6888-9246) /uL Lymph # (Auto) (1004-0135) /uL [place] # (Auto) (0-900) /uL Eos # (Auto) (0-450) /uL Baso # (Auto) (0-100) /uL Sodium 140 (137-145) mmol/L Potassium 3.9 (3.4-5.1) mmol/L Chloride 105 (98-107) mmol/L Carbon Dioxide 29 (22-32) mmol/L BUN 14 (9-20) mg/dL Creatinine 0.71 (0.66-1.25) mg/dL Estimated GFR > 60.0 (>60) mL/min BUN/Creatinine Ratio 19.7 (6-22) Glucose 84 (70-100) mg/dL Calcium 8.8 (8.4-10.2) mg/dL Total Bilirubin < 0.1 L (0.2-1.3) mg/dL AST 16 L (17-59) IU/L ALT 10 (<50) IU/L Alkaline Phosphatase 42 (38-126) U/L Total Protein 6.6 (6.3-8.2) g/dL Albumin 3.7 (3.5-5.0) g/dL Globulin 2.9 (1.7-4.1) g/dL Albumin/Globulin Ratio 1.3 (1.0-2.8) Urine Color Urine Appearance Urine pH (4.5-8.0) Ur Specific [employer] (1.000-1.035) Urine Protein (Negative) Urine Glucose (UA) (Negative) g/dL Urine Ketones (NEGATIVE) Urine Occult Blood (Negative) Urine Nitrate (Negative) Urine Bilirubin (NEGATIVE) Urine Urobilinogen (0.2) E.U./dL Ur Leukocyte Esterase (NEGATIVE) Urine RBC (0-5/HPF) Urine WBC (0-5/HPF) Ur Squamous Epith Cells (0-5/HPF) Urine Bacteria (None) Ur Culture Indicated? U Opiates 300ng/mL cut (Negative) Ur Oxycodone Screen (Negative) Urine Methadone Screen (Negative) Ur Barbiturates Screen (Negative) U Tricyclic Antidepress (Negative) Ur Phencyclidine Scrn (Negative) Ur Amphetamines Screen (Negative) U Methamphetamines Scrn (Negative) Ur MDMA Scrn (Ecstasy) (Negative) U Benzodiazepines Scrn (Negative) Urine Cocaine Screen (Negative) U Marijuana (THC) Screen (Negative) Ethyl Alcohol < 10 ( - 10) mg/dL SARS-CoV-2 (PCR) Negative (Negative) Discharge Plan Departure Patient Disposition: Xfer Psychiatric Hosp Clinical Impression: Suicidal ideation, Depression
[2020-08-08 19:52] LABS: UR Morphine/Opiate cutoff 300 Negative (Negative); Ur Creatinine Normal (Normal); Ur Specific Gravity Normal (Normal); Urine Amphetamines Negative (Negative); Urine Barbiturates Negative (Negative); Urine Benzodiazepines Negative (Negative); Urine Cocaine Negative (Negative); Urine MDMA Negative (Negative); Urine Methadone Negative (Negative); Urine Methamphetamines Negative (Negative); Urine Oxycodone Negative (Negative); Urine Phencyclidine Negative (Negative); Urine Tetrahydrocannabinol Positive (Negative); Urine Tricyclic Antidepressant Negative (Negative); Urine pH Normal (Normal)
[2020-08-08 19:54] LABS: Culture Indicated Urine Cult Not Indicated; Squamous Epithelial Cell Urine 0-1 /HPF (0-5/HPF); WBC Urine 0-1/HPF (0-5/HPF)
[2020-08-08 19:58] LABS: Alanine Aminotransferase 10 IU/L (<50); Albumin 3.7 g/dL (3.5-5.0); Albumin Globulin Ratio 1.3 (1.0-2.8); Alkaline Phosphatase 42 U/L (38-126); Aspartate Aminotransferase 16 IU/L (17-59); BUN Creatinine Ratio 19.7 (6-22); Blood Urea Nitrogen 14 mg/dL (9-20); Calcium 8.8 mg/dL (8.4-10.2); Carbon Dioxide 29 mmol/L (22-32); Chloride 105 mmol/L (98-107); Estimated Glomerular Filt Rate > 60.0 mL/min (>60); Ethanol (ETOH) < 10 mg/dL; Globulin 2.9 g/dL (1.7-4.1); Glucose 84 mg/dL (70-100); HEMOLYSIS < 15 (0-50); Potassium 3.9 mmol/L (3.4-5.1); Sodium 140 mmol/L (137-145); Total Protein 6.6 g/dL (6.3-8.2)
[2020-08-08 19:59] LABS: Bilirubin Total < 0.1 mg/dL (0.2-1.3)
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
--- NOTE | 2020-08-08 20:10 | PC.NURSE ---
At 1954, Pt had seizure lasting approx 60+ seconds. Seizure stopped before any medication could be administered, doctor gave verbal order for ativan then olivia verbal to hold ativan for this seizure.
[2020-08-08 20:29] LABS: COVID19 -Nasal RAPID Negative (Negative)
--- NOTE | 2020-08-08 21:38 | PC.NURSE ---
Patient doing origami and seems to be calm.
--- NOTE | 2020-08-09 01:39 | PC.NURSE ---
Pt. appears asleep. Breaths are even and unlabored.
--- NOTE | 2020-08-09 07:40 | PC.NURSE ---
respirations observed, allowed to rest
--- NOTE | 2020-08-09 08:41 | PC.NURSE ---
Provided portible telephone to speak with mother who called to check in.
[2020-08-09] MEDS: clonazePAM 0.5 MG TABLET 1 MG PO (09:27)
[2020-08-09] MEDS: OLANZapine 2.5 MG TABLET 10 MG PO (09:35)
--- NOTE | 2020-08-09 09:50 | PC.NURSE ---
provider aware of escalating patient behaviors
[2020-08-09] MEDS: LORazepam 0.5 MG TABLET 2 MG PO (09:58)
--- NOTE | 2020-08-09 10:16 | PC.NURSE ---
Patiewnt medicated for anxiety, patient is sitting on saftey mattress hitting self in the head with her fists. Provider aware.
--- NOTE | 2020-08-09 10:18 | PC.NURSE ---
Provider aware, RDA coming down to see andrew
--- NOTE | 2020-08-09 10:27 | PC.NURSE ---
JANNY Blood at bedside
[2020-08-09] MEDS: HALOPERIDOL 5 MG/ML VIAL IM (10:35)
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
--- NOTE | 2020-08-09 11:24 | PC.NURSE ---
Patient offered snack but patient refused as she would like to wait until lunch tray. Accepted water.
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
--- NOTE | 2020-08-09 15:28 | PC.NURSE ---
Addendum entered by Anyi Lane R.N. 08/09/20 15:43: [facility] will attempt to find bed as voluntary however believes that since she required IM medication the facility would want her to be evaluated and MO'd by [facility]. Original Note: Called [facility] / [facility]: [phone]: Spoke w/ intake. She will check and see if it is possible to take at [facility].
[2020-08-09 15:45] VITALS: BP 113/68; PULSE 82; RESP 18; TEMP 37.5; O2SAT 99
--- NOTE | 2020-08-09 15:49 | PC.NURSE ---
Spoke w/ [facility].They will not consider unless [facility]CR comes to evaluate for MO status. Faxed to [facility] / [facility]. [facility] & spoke w/ triage.
[2020-08-09] MEDS: OLANZapine ODT 10 MG TAB PO (17:16)
[2020-08-09 18:50] VITALS: BP 105/68; PULSE 96; RESP 14; TEMP 37.7; O2SAT 99
--- NOTE | 2020-08-09 19:39 | PC.NURSE ---
Pt complaining that we're not helping her and if there are no beds available then she wants to be discharged. GITA Huber notified and is now speaking with pt. Dr Lance also made aware. Sitter remains 1:1 for safety.
[2020-08-09] MEDS: LORazepam 0.5 MG TABLET 1 MG PO (19:53)
--- NOTE | 2020-08-09 22:16 | PC.NURSE ---
Respirations observed. Patient continues to rest.
--- NOTE | 2020-08-10 03:10 | PC.NURSE ---
Pt. woke up to use the bathroom. Pt. is now awake playing with [employer].
--- NOTE | 2020-08-10 03:23 | PC.NURSE ---
Pt. asked if she could have something to help her sleep. Provider aware.
[2020-08-10] MEDS: LORazepam 0.5 MG TABLET 1 MG PO (03:35)
--- NOTE | 2020-08-10 10:19 | PC.NURSE ---
Mother of Pt, Destini, in room with Pt permission.
[2020-08-10 10:49] VITALS: BP 118/81; PULSE 69; O2SAT 99
== END 2020-08-10 11:05 ==
PROVIDERS: Emergency Medicine; Emergency Provider Emergency Medicine
DX: R45.851 Suicidal ideations (principal); F32.9 Major depressive disorder, single episode, unspecified; Z20.822 Contact with and (suspected) exposure to COVID-19
CPT/HCPCS: 36415; 80053; 80305; 80320; 81001; 85025; 87635; 93005; 96372; 99284; C9803; J1630